=== PATIENT | male | born 1995 | race Caucasian/White ===

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

== ENCOUNTER 2017-04-10 21:48 | Emergency (ER) | payer OTHER, MEDICAID ==
[2017-04-10 22:16] VITALS: BP 129/79
== END 2017-04-11 02:00 | disposition left against medical advice (07) ==
LOC: ER 21:48
DX: Z53.21 Procedure and treatment not carried out due to patient leaving prior to being seen by health care provider (principal)

== ENCOUNTER 2017-11-03 18:11 | Emergency (ER) | payer MEDICAID, OTHER ==
[2017-11-03] MEDS ORDERED: LIDOCAINE 1% INJ (10 MG/ML) 10 ML MDV INJ ONE (18:35)
[2017-11-03] MEDS ORDERED: LIDOCAINE 1.5%/EPINEPHRINE INJ-PF 30 ML SDV INJ ONE (18:40)
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
[2017-11-03] MEDS ORDERED: LIDOCAINE 1%/EPINEPHRINE INJ 20 ML VIAL INJ ONE (18:44)
[2017-11-03] MEDS ORDERED: LIDOCAINE 1% INJ-PF (10 MG/ML) 30 ML SDV INJ ONE (19:47)
--- NOTE | 2017-11-03 21:25 | RADIOLOGY REPORT (SQ) ---
EXAM DESCRIPTION: SKULL 1-3 VIEWS COMPLETED DATE/TIME: 11/03/2017 9:06 pm REASON FOR STUDY: eval foreign body around forehead location COMPARISON: None. NUMBER OF VIEWS: Four views of the skull. LIMITATIONS: None. FINDINGS: Bones intact. No radiopaque foreign body. Clear paranasal sinuses. OTHER: No other significant finding. IMPRESSION: No foreign body detected. TECHNICAL DOCUMENTATION: JOB ID: [id number] Reading location - IP/workstation name: [email or web address]
[2017-11-03 21:47] VITALS: BP 127/69
== END 2017-11-03 21:30 | disposition home or self-care (01) ==
LOC: ER 18:11
PROC: 0HQ1XZZ Repair Face Skin, External Approach (ICD-10-PCS; principal; 2017-11-03)
DX: S01.81XA Laceration without foreign body of other part of head, initial encounter (principal); W22.8XXA Striking against or struck by other objects, initial encounter
CPT/HCPCS: 99283; 70250; 12055; J3490

== ENCOUNTER 2018-04-24 02:36 | Emergency (ER) | payer OTHER ==
[2018-04-24] MEDS ORDERED: ONDANSETRON 4 MG TAB.RAPDIS PO ONE (03:15)
[2018-04-24] MEDS ORDERED: CYCLOBENZAPRINE HCL 10 MG TABLET PO ONE (03:15)
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
[2018-04-24 03:48] LABS: ABSOLUTE BASOPHILS # (AUTO) 0.1 10^3/uL (0.0-0.2); ABSOLUTE EOSINOPHILS # (AUTO) 0.4 10^3/uL (0.0-0.6); ABSOLUTE LYMPHOCYTES (AUTO) 3.4 10^3/uL (0.5-4.7); ABSOLUTE MONOCYTES (AUTO) 0.7 10^3/uL (0.1-1.4); ABSOLUTE NEUT (AUTO) 3.9 10^3/uL (1.7-8.2); BASOPHILS % (AUTO) 0.9 % (0-2); EOSINOPHILS % (AUTO) 4.3 % (0-6); HEMATOCRIT 41.5 % (37.9-51.0); HEMOGLOBIN 14.5 g/dL (13.5-17.0); LYMPHOCYTES % (AUTO) 40.5 % (13-45); MEAN CORPUSCULAR HEMOGLOBIN 30.8 pg (27.0-33.4); MEAN CORPUSCULAR VOLUME 88 fl (80-97); MONOCYTES % (AUTO) 7.8 % (3-13); PLATELET COUNT 253 10^3/uL (150-450); RED BLOOD COUNT 4.71 10^6/uL (4.35-5.55); SEGMENTED NEUTROPHILS % (AUTO) 46.5 % (42-78); TOTAL CELLS COUNTED % (AUTO) 100 %; WHITE BLOOD COUNT 8.5 10^3/uL (4.0-10.5)
[2018-04-24 04:01] LABS: ALANINE AMINOTRANSFERASE 31 U/L (21-72); ALBUMIN 4.6 g/dL (3.5-5.0); ALKALINE PHOSPHATASE 63 U/L (38-126); ANION GAP 10 (5-19); ASPARTATE AMINO TRANSFERASE 43 U/L (17-59); BILIRUBIN,DIRECT 0.2 mg/dL (0.0-0.4); BILIRUBIN,TOTAL 0.4 mg/dL (0.2-1.3); BLOOD UREA NITROGEN 8 mg/dL (7-20); CALCIUM 9.6 mg/dL (8.4-10.2); CARBON DIOXIDE 25 mmol/L (22-30); CHLORIDE 111 mmol/L (98-107); GLUCOSE 93 mg/dL (75-110); LIPASE 111.9 U/L (23-300); SODIUM 146.4 mmol/L (137-145); TOTAL PROTEIN 7.3 g/dL (6.3-8.2)
[2018-04-24] MEDS ORDERED: FAMOTIDINE 20 MG TABLET PO ONE (04:30)
[2018-04-24 05:15] VITALS: BP 112/78
== END 2018-04-24 05:13 | disposition home or self-care (01) ==
LOC: ER 02:36
DX: R10.13 Epigastric pain (principal); K92.0 Hematemesis; M54.5 Low back pain; F17.200 Nicotine dependence, unspecified, uncomplicated; Z88.6 Allergy status to analgesic agent
CPT/HCPCS: 99284; 36415; 83690; 85025; 80053; S0119

== ENCOUNTER 2018-08-16 09:36 | Emergency (ER) | payer OTHER ==
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
[2018-08-16] MEDS ORDERED: MORPHINE SULFATE 10 MG/ML INJ IV ONE (10:12)
[2018-08-16] MEDS ORDERED: ONDANSETRON HCL INJ/PF 4 MG/2 ML SDV IV ONE (10:12)
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
[2018-08-16 10:29] LABS: ABSOLUTE BASOPHILS # (AUTO) 0.1 10^3/uL (0.0-0.2); ABSOLUTE EOSINOPHILS # (AUTO) 0.3 10^3/uL (0.0-0.6); ABSOLUTE MONOCYTES (AUTO) 0.4 10^3/uL (0.1-1.4); ABSOLUTE NEUT (AUTO) 5.2 10^3/uL (1.7-8.2); EOSINOPHILS % (AUTO) 3.3 % (0-6); HEMATOCRIT 46.9 % (37.9-51.0); HEMOGLOBIN 16.2 g/dL (13.5-17.0); LYMPHOCYTES % (AUTO) 33.2 % (13-45); MEAN CORPUSCULAR HEMOGLOBIN 29.9 pg (27.0-33.4); MEAN CORPUSCULAR HGB CONC 34.6 g/dL (32.0-36.0); MEAN CORPUSCULAR VOLUME 87 fl (80-97); PLATELET COUNT 308 10^3/uL (150-450); RED BLOOD COUNT 5.43 10^6/uL (4.35-5.55); RED CELL DISTRIBUTION WIDTH 13.3 % (11.5-14.0); SEGMENTED NEUTROPHILS % (AUTO) 57.5 % (42-78); TOTAL CELLS COUNTED % (AUTO) 100 %
[2018-08-16 10:47] LABS: ALANINE AMINOTRANSFERASE 22 U/L (21-72); ALBUMIN 5.5 g/dL (3.5-5.0); ALKALINE PHOSPHATASE 79 U/L (38-126); ANION GAP 10 (5-19); ASPARTATE AMINO TRANSFERASE 44 U/L (17-59); BILIRUBIN,DIRECT 0.2 mg/dL (0.0-0.4); BILIRUBIN,TOTAL 0.3 mg/dL (0.2-1.3); BLOOD UREA NITROGEN 9 mg/dL (7-20); CALCIUM 9.7 mg/dL (8.4-10.2); CARBON DIOXIDE 28 mmol/L (22-30); CHLORIDE 110 mmol/L (98-107); CREATINE KINASE 328 U/L (55-170); GLUCOSE 98 mg/dL (75-110); LIPASE 95.9 U/L (23-300); POTASSIUM 4.1 mmol/L (3.6-5.0); SODIUM 148.1 mmol/L (137-145); TOTAL PROTEIN 8.5 g/dL (6.3-8.2)
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
[2018-08-16] MEDS ORDERED: NORMAL SALINE 1000 ML 1,000 ML IV ONE ×2 (11:26→11:27)
[2018-08-16 11:49] VITALS: BP 114/75
[2018-08-16 12:27] LABS: APPEARANCE,URINE CLEAR; BILIRUBIN,URINE NEGATIVE (NEGATIVE); COLOR,URINE STRAW; GLUCOSE, URINE NEGATIVE (NEGATIVE); KETONES,URINE NEGATIVE (NEGATIVE); LEUKOCYTE ESTERASE,URINE NEGATIVE (NEGATIVE); NITRITE,URINE NEGATIVE (NEGATIVE); PROTEIN,URINE NEGATIVE (NEGATIVE); UROBILINOGEN,URINE NEGATIVE mg/dL (<2.0)
[2018-08-16 12:29] LABS: URINE SPECIFIC GRAVITY > 1.060
== END 2018-08-16 11:55 | disposition home or self-care (01) ==
LOC: ER 09:36
DX: R10.32 Left lower quadrant pain (principal); F10.929 Alcohol use, unspecified with intoxication, unspecified; R10.12 Left upper quadrant pain; R10.10 Upper abdominal pain, unspecified; R07.81 Pleurodynia; V89.2XXA Person injured in unspecified motor-vehicle accident, traffic, initial encounter; F17.200 Nicotine dependence, unspecified, uncomplicated
CPT/HCPCS: 99284; 96374; 96375; 36415; 80307; 82550; 83690; 85025; 80053; 81001; 71045; 70450; 71260; 72125; 74177; J2270; J2405; J7030

== ENCOUNTER 2019-09-29 09:58 | Emergency (ER) | payer SELFPAY ==
[2019-09-29 10:59] LABS: ABSOLUTE BASOPHILS # (AUTO) 0.1 10^3/uL (0.0-0.2); ABSOLUTE EOSINOPHILS # (AUTO) 0.3 10^3/uL (0.0-0.6); ABSOLUTE LYMPHOCYTES (AUTO) 2.8 10^3/uL (0.5-4.7); ABSOLUTE MONOCYTES (AUTO) 0.9 10^3/uL (0.1-1.4); ABSOLUTE NEUT (AUTO) 3.6 10^3/uL (1.7-8.2); AMORPHOUS SEDIMENT,URINE 1+ /HPF; APPEARANCE,URINE TURBID; BILIRUBIN,URINE NEGATIVE (NEGATIVE); COLOR,URINE YELLOW; EOSINOPHILS % (AUTO) 4.3 % (0-6); GLUCOSE, URINE NEGATIVE (NEGATIVE); HEMATOCRIT 42.8 % (37.9-51.0); HEMOGLOBIN 14.5 g/dL (13.5-17.0); KETONES,URINE NEGATIVE (NEGATIVE); LEUKOCYTE ESTERASE,URINE NEGATIVE (NEGATIVE); MEAN CORPUSCULAR HEMOGLOBIN 28.5 pg (27.0-33.4); MEAN CORPUSCULAR HGB CONC 33.9 g/dL (32.0-36.0); MEAN CORPUSCULAR VOLUME 84 fl (80-97); MONOCYTES % (AUTO) 12.3 % (3-13); NITRITE,URINE NEGATIVE (NEGATIVE); PLATELET COUNT 387 10^3/uL (150-450); PROTEIN,URINE NEGATIVE (NEGATIVE); RED CELL DISTRIBUTION WIDTH 13.8 % (11.5-14.0); SEGMENTED NEUTROPHILS % (AUTO) 46.4 % (42-78); TOTAL CELLS COUNTED % (AUTO) 100 %; URINE SPECIFIC GRAVITY 1.013; UROBILINOGEN,URINE NEGATIVE mg/dL (<2.0); WHITE BLOOD COUNT 7.7 10^3/uL (4.0-10.5)
[2019-09-29 11:11] LABS: URINE BARBITURATES SCREEN NEGATIVE; URINE BENZODIAZEPINES SCREEN NEGATIVE; URINE COCAINE SCREEN NEGATIVE; URINE MARIJUANA (THC) SCREEN NEGATIVE; URINE METHADONE SCREEN NEGATIVE; URINE PHENCYCLIDINE SCREEN NEGATIVE
[2019-09-29 11:27] LABS: ACETAMINOPHEN < 10 ug/mL (10-30); ALBUMIN 4.5 g/dL (3.5-5.0); ALCOHOL < 10 mg/dL (NONE DETECTED); ALKALINE PHOSPHATASE 91 U/L (38-126); ANION GAP 12 (5-19); ASPARTATE AMINO TRANSFERASE 36 U/L (17-59); BILIRUBIN,DIRECT 0.2 mg/dL (0.0-0.4); BILIRUBIN,TOTAL 0.5 mg/dL (0.2-1.3); BLOOD UREA NITROGEN 18 mg/dL (7-20); CALCIUM 9.7 mg/dL (8.4-10.2); CARBON DIOXIDE 30 mmol/L (22-30); CHLORIDE 101 mmol/L (98-107); GLUCOSE 76 mg/dL (75-110); POTASSIUM 4.7 mmol/L (3.6-5.0); SALICYLATE < 1.0 mg/dL (2.0-20.0); TOTAL PROTEIN 7.9 g/dL (6.3-8.2)
--- NOTE | 2019-09-29 11:50 | ER Document Report ---
ED General <ARCESINCERE - Last Filed: 09/29/19 13:13> - General TRAVEL OUTSIDE OF THE [place] IN LAST 30 DAYS: No <JORDIGINZACK - Last Filed: 09/29/19 13:36> - General Stated Complaint: PSYCH Time Seen by Provider: 09/29/19 10:24 Primary Care Provider: [facility] [Outside] - Follow up as needed Notes: 23-year-old male brought to the emergency department under IVC from the etl tester's office filled out by his mother. Patient apparently overdosed on heroin 2 days ago and received Narcan. Patient states he thinks his regular supply got switched and that is why he overdosed. Patient denies suicidal ideation, denies intentionally increasing his dose, denies intentionally overdosing. Patient states last time he used any heroin was 2 days ago, currently complains of rhinorrhea and nausea as well as feeling like he has to move his feet all the time. Denies sweats, chills, vomiting, diarrhea, muscle pain or abdominal cramping. States that he does want to try and quit using narcotics, does not wish to have any medical help at this time. Is not int erested in inpatient treatment. Secondarily patient notes that he had an infection to his left nostril recently, states that the left side of his face was quite swollen, he states he pulled out an ingrown hair and got drainage out of the area, took 2 different antibiotics that he had leftover from prior prescriptions and it has now almost completely resolved, complains of a small amount of crusting to his left nostril. (ZACK JACKSON) - Related Data Allergies/Adverse Reactions: hydrocodone Adverse Reaction (Verified 08/16/18 09:37) VOMITING Past Medical History - General Information source: Patient - Social History Smoking Status: Current Every Day Smoker Frequency of alcohol use: None Drug Abuse: Heroin, Marijuana Family History: Arthritis, DM, Malignancy - Past Medical History Cardiac Medical History: Denies: Hx Coronary Artery Disease, Hx Heart Attack, Hx Hypertension Pulmonary Medical History: Denies: Hx Asthma, Hx Bronchitis, Hx COPD, Hx Pneumonia Neurological Medical History: Reports: Hx Migraine. Denies: Hx Cerebrovascular Accident, Hx Seizures Renal/ Medical History: Denies: Hx Peritoneal Dialysis Musculoskeletal Medical History: Denies Hx Arthritis - Immunizations Immunizations up to date: Yes Hx Diphtheria, Pertussis, Tetanus Vaccination: Yes <ZACK JACKSON - Last Filed: 09/29/19 13:36> Review of Systems - Review of Systems Constitutional: No symptoms reported EENT: See HPI, Nose discharge Cardiovascular: No symptoms reported Respiratory: No symptoms reported Neurological/Psychological: See HPI - Heroin overdose. -: Yes All other systems reviewed and negative <ZACK JACKSON - Last Filed: 09/29/19 13:36> Physical Exam - Vital signs Interpretation: Normal <ZACK JACKSON - Last Filed: 09/29/19 13:36> - Vital signs Vitals: Temp Pulse Resp BP Pulse Ox 97.5 F 97 16 128/89 H 99 09/29/19 10:02 09/29/19 10:02 09/29/19 10:02 09/29/19 10:02 09/29/19 10:02 - Notes Notes: GENERAL: Alert, interacts well. No acute distress. HEAD: Normocephalic, atraumatic EYES: Pupils equal, round and reactive to light, extraocular movements intact. ENT: Oral mucosa moist, tongue midline. Nares patent, slight irregularity to the lateral aspect of the left nostril, small amount of crusting, no active erythema, no active swelling, there is clear rhinorrhea. NECK: Full range of motion, supple, trachea midline. LUNGS: Clear to auscultation bilaterally, no wheezes, rales or rhonchi, no respiratory distress. HEART: Regular rate and rhythm, no murmurs, gallops, rubs. ABDOMEN: Soft, nontender, nondistended, bowel sounds present in all 4 quadrants. EXTREMITIES: Moves all 4 extremities spontaneously, no edema, radial and dorsalis pedis pulses 2/4 bilaterally. No cyanosis. NEUROLOGICAL: Alert and oriented x3, normal speech, biceps and patellar DTRs 2+ bilaterally. PSYCH: Normal mood, normal affect. SKIN: Warm, Dry, normal turgor. (ZACK JACKSON) Course - Laboratory Result Diagrams: 09/29/19 10:24 09/29/19 10:24 <SINCERE ARCE - Last Filed: 09/29/19 13:13> - Laboratory Result Diagrams: 09/29/19 10:24 09/29/19 10:24 <ZACK JACKSON - Last Filed: 09/29/19 13:36> - Re-evaluation Re-evalutation: 09/29/19 12:38 Laboratory studies unremarkable, offered patient medication assisted therapy, he declined, discussed with patient symptomatic treatment for symptoms of withdrawal, he is considering this. Currently not interested in inpatient therapy. Behavioral health will evaluate. Patient is medically cleared. 09/29/19 13:32 Patient is cleared from a psychiatric standpoint, IVC has been rescinded, patient does not have significant withdrawal symptoms at this time the need to be controlled. Continues to refuse inpatient or outpatient assistance, given outpatient resources. Does not give us permission to speak with his mother. Patient will be discharged to home. For the mild nasal cellulitis patient will be given topical Bactroban. Discharged home. (ZACK JACKSON) - Vital Signs Vital signs: Temp Pulse Resp BP Pulse Ox 97.5 F 97 16 128/89 H 99 09/29/19 10:02 09/29/19 10:02 09/29/19 10:02 09/29/19 10:02 09/29/19 10:02 - Laboratory Laboratory results interpreted by me: 09/29/19 10:24 Salicylates < 1.0 L Acetaminophen < 10 L - EKG Interpretation by Me Additional EKG results interpreted by me: 09/29/19 12:38 09/29/19 12:38 EKG shows sinus rhythm at a rate of 84, normal axis, normal intervals, no ST segment elevations or depressions, no T wave inversions per my interpretation. (ZACK JACKSON) Discharge <SINCERE ARCE - Last Filed: 09/29/19 13:13> <ZACK JACKSON - Last Filed: 09/29/19 13:36> - Discharge Clinical Impression: Substance abuse, Cellulitis of external nose Condition: Stable Disposition: HOME, SELF-CARE Additional Instructions: You have a mild infection of the skin of your nose on the left-hand side, this appears to be quite a bit better compared to what she previously described having. Please apply the Bactroban ointment to the outside of your nose 4 times a day while you are awake. Please return to the emergency department should yo u develop increasing redness or swelling. You have been evaluated by both medical and behavioral health teams for Substance Abuse and have been deemed appropriate for discharge. While in the emergency department you received the following services: Medical screening and assessment, nursing services, dietary services, one-on-one counseling and/or psychotherapy, environmental services, and continuous observation by a patient health safety coordinator. You have been provided with a mental health resource list which includes detox facilities and mobile crisis contact information. You are highly encouraged to follow up with substance abuse treatment. Narcotic abuse: You have admitted to using heroin. This is highly addictive. Today you have declined to be sent to inpatient treatment. We have given you outpatient treatment resources. You may develop nausea, vomiting, diarrhea, runny nose, sweats and chills, abdominal cramping or muscle aches. You may treat the pain with ibuprofen or acetaminophen. You may use Imodium as directed on the box [id number] to treat the diarrhea. AMPHETAMINE / METHAMPHETAMINE ABUSE: Amphetamines are addicting stimulants. Amphetamines overstimulate the nervous system and give a false feeling of power and mastery. These drugs may be obtained as prescription pills for weight loss, narcolepsy, or attention-deficit disorder. More often they're bought as an illegal street drug, methamphetamine (crank, crystal, speed). Using amphetamines repeatedly can lead to serious medical problems including malnutrition, severe depression, and paranoia. It can take increasing amounts to feel good. Eventually, there will be a "burn out." When you go off amphetamines there is a period of depression that may last for weeks or even months. High doses of amphetamines can cause seizures, confusion, hallucinations, delusions, high blood pressure, muscle damage, heart damage, or sudden . Many times these deadly complications occur even with "normal" doses. Injection of amphetamines is risky for developing abscesses, endocarditis (heart infection), pneumonia, and AIDS. Withdrawal from amphetamines often causes anxiety, depression, and drug cravings. Some users become paranoid and psychotic. There may be cramps, nausea, and vomiting. Many treatment programs are available, but you must make the decision to qu it. Medication can be prescribed to control the symptoms of amphetamine toxicity (beta blockers or benzodiazepines). Withdrawal symptoms may require tranquilizers. FOLLOW-UP CARE: If you have been referred to a physician for follow-up care, call the physicians office for an appointment as you were instructed or within the next two days. If you experience worsening or a significant change in your symptoms, notify the physician immediately or return to the Emergency Department at any time for re-evaluation. Prescriptions: Mupirocin Calcium [Bactroban 2% Cream 15 gm] 1 applic TP QID #1 tube Referrals: [facility] [Outside] - Follow up as needed
--- NOTE | 2019-09-29 12:38 | PSYCHOLOGICAL NOTE ---
Psych Note - Psych Note Date seen by psych provider: 09/29/19 Time seen by psych provider: 11:45 - 1st attempt Psych Note: Reason for Consult: IVC Consent permissions: Patient reports he does not give consent for his mother to have information. Patient reports only his roommate can have information however he is unable to provide this number because he does not have it memorized or on him. Patient presented to [facility] under 24-hour petition for evaluation. Patient's mother is petitioner. She reports that the patient drug use has significantly gotten worse. She reports that approximately 6 months ago he started using and that he is both injecting and snorting drugs. She reports that his drug of choice is heroin however any drug he comes across he will use. She states that he does not believe he has a problem. She states last he ended up overdosing and needed to be Narcan and by emergency services. She discloses that the patient had a 3 inch wide infection in 1 of his nostrils where he is now missing a piece of skin. She reports that he has gone from 150 pounds to 90 pounds since using. Clinician attempted to evaluate patient however patient was unable to engage as he continually fell asleep during evaluation before answering questions. Patient was unable to sit up and answer questions without nodding off. Clinician was concerned for the patient's safety (i.e. possibly falling out of the stretcher) so had patient lay back. Clinician will reattempt evaluation. 1230 second attempt Patient reports that his family is attempting to force him into treatment after he accidentally overdosed on . He denies that it was intentional. He states that he was injured and started using pain medication because of that. He slowly built up a tolerance and now takes to "katie the way I used to feel wh en I took it." He reports he would like sobriety however states that he does not want to be forced into it, he will do it on his own. Patient denies any recent weight loss stating that he has always been on the smaller size because of his mother/genetics. He reports he would gladly take resource information however declines assistance in obtaining a detox bed at this time. Patient reports last time he used was when he accidentally overdosed Sunday morning. Impression\\plan: Patient is recommended for rescind of IVC and is cleared from acute psychiatric services. At this time patient does not meet IVC criteria for substance abuse. Patient is not under the influence and is able to discuss plan of care stating that he does not want to be forced into treatment. There is no indication that the patient will suffer a serious physical debilitation within the near future without treatment. Patient demonstrates organized linear and rational thought processes. At this time there is no evidence of severely impaired insight and judgment to create a prima facie that the patient is unable to care for himself. Patient was provided local resource list of area providers including detox facilities and mobile crisis contact information. Dr. Braga was consulted to care management of this patient; attending physicians in agreement with recommendations and disposition.
[2019-09-29 14:17] VITALS: BP 120/70
--- NOTE | 2019-09-29 15:37 | EKG REPORT ---
SEVERITY:- NORMAL ECG - SINUS RHYTHM : Confirmed by: Andree Guerrier MD 29-Sep-2019 15:37:02
== END 2019-09-29 14:18 | disposition home or self-care (01) ==
LOC: ER 09:58
DX: F11.10 Opioid abuse, uncomplicated (principal); F12.10 Cannabis abuse, uncomplicated; J34.0 Abscess, furuncle and carbuncle of nose; J34.89 Other specified disorders of nose and nasal sinuses; R11.0 Nausea; F17.200 Nicotine dependence, unspecified, uncomplicated
CPT/HCPCS: 36415; 80053; 80307; 81001; 85025; 93005; 93010; 99284